=== PATIENT | male | born 1960 | race Caucasian/White ===

== ENCOUNTER 2025-02-26 10:54 | Day surgery (SDC) | payer MEDICARE, BC, SELFPAY ==
[2025-02-23 11:00] VITALS: BMI 31.4
[2025-02-26] MEDS: LACTATED RINGERS 1000ML 1,000 ML 50 ML IV (11:09)
[2025-02-26 11:13] VITALS: BP 122/84; PULSE 84; RESP 17; TEMP 36.3; O2SAT 99
--- NOTE | 2025-02-26 11:51 | EXP.HP ---
History of Present Illness *Admission Date: 02/26/25 *History of present illness: Mr. Clifford is a 65-year-old gentleman who is here for diagnostic panendoscopy. The patient does have a history of duodenal ulcers and had an EGD with id and April 2015 and again in July 2017. His endoscopy in 2017 did show eosinophilic esophagitis. His last colonoscopy was in October 2014 and he had left-sided diverticulosis but no polyps. The patient is doing very well and reports regular bowel function and does take psyllium fiber. He also has remained on the buspirone and misoprostol which he states has helped him maintain better digestive function. He reports no rectal bleeding, abdominal pain, weight loss or change in bowel habits. He reports no family history of colon cancer. He is due for repeat surveillance colonoscopy. He is not on any maintenance of therapy for his eosinophilic esophagitis. He will have some occasional dysphagia to vitamins or large tablets and did have a meat impaction about a year ago. He has not had an EGD since his last in 2016. [facility] Disclaimer: The information contained in this section may have been updated after the patient was seen, as this information can be updated by other users. Medical History Hiatal hernia GERD (gastroesophageal reflux disease) Eosinophilic esophagitis Diverticulosis Surgical History History of shoulder surgery History of repair of ACL H/O hand surgery Family History Father Prostate cancer Brother Cirrhosis Social History Smoking Status: Never smoker alcohol intake: current alcohol intake frequency: holidays/special occasions only substance use type: denies use current occupational status: employed Travel in the last 8 weeks?: None Have you lived/traveled outside [place] in past 30 days?: No Contact w/someone who lives/traveled outside US past 30 days?: No Exposure to someone with infectious disease in past 14 days?: No Do you have a fever (greater than 100.4 F or 38 C)?: No Have you tested positive for COVID-19?: No Exposed to someone with COVID-19 in past 14 days?: No Do you have a sore throat?: No Do you have a cough?: No Do you have any weakness?: No Do you have any diarrhea?: No Are you experiencing any unusual bleeding?: No Do you have any muscle aches/pain?: No Do you have any abdominal pain?: No Are you experiencing loss of taste or smell?: No Other Medical History Have you received the Pneumonia Vaccine: No Review of Systems Review of Systems Review of systems (narrative): Negative *Cardiovascular Comments: Negative *Gastrointestinal Comments: Negative *Genitourinary Comments: Negative *Musculoskeletal Comments: Negative *Neurologic Comments: Negative Meds Home Medications and Allergies Home Medications ?Medication ?Instructions ?Recorded ?Confirmed ?Type buspirone 10 mg tablet 10 mg PO BID #60 tabs 12/20/24 02/26/25 Rx methylphenidate HCl 10 mg tablet 10 mg PO QID 12/20/24 02/26/25 History (Ritalin) misoprostol 200 mcg tablet 200 mcg PO BID #60 tabs 12/20/24 02/26/25 Rx quetiapine 150 mg tablet 150 mg PO DAILY 12/20/24 02/26/25 History quetiapine 300 mg tablet 300 mg PO DAILY 12/20/24 02/26/25 History New Prescriptions to Start Prescriptions: Allergies Allergy/AdvReac Type Severity Reaction Status Date / Time No Known Allergies Allergy Verified 02/26/25 11:11 Exam Data for Last 24 hours Vital signs and Labs for Last 24 Hours: Temp Pulse Resp BP Pulse Ox O2 Del Method 97.3 F L 84 17 122/84 99 Room Air 02/26/25 11:13 02/26/25 11:13 02/26/25 11:13 02/26/25 11:13 02/26/25 11:13 02/26/25 11:13 I & O for Last 24 hours: Intake & Output 02/23/25 02/24/25 02/25/25 02/26/25 23:59 23:59 23:59 23:59 Weight 245 lb *Routine HEENT Exam Head: Present normocephalic Eye: Present EOMI and PERRL ENT: Present mucous membranes moist *Routine Neck Exam Neck: Present supple *Routine Respiratory Exam Respiratory: Present CTA bilaterally *Routine Cardiovascular Exam Cardiovascular: Present RRR *Routine Abdominal Exam Abdominal: Present soft and normoactive bowel sounds; Absent tenderness *Routine Rectal Exam Rectal:: deferred *Routine Genitalia Exam Genitalia:: deferred *Routine Extremities Exam Extremities: Absent cyanosis, clubbing or edema *Routine Skin Exam Skin: Present warm; Absent rash *Routine Neurological Exam Neurological: Present alert and oriented X3 Assessment and Plan *Assessment and plan (1) Screening for colon cancer: Status: Acute Category: Medical Code(s): Z12.11 - Encounter for screening for malignant neoplasm of colon (2) Eosinophilic esophagitis: Status: Acute Category: Medical Code(s): K20.0 - Eosinophilic esophagitis (3) Intermittent dysphagia: Status: Acute Category: Medical Code(s): R13.19 - Other dysphagia (4) History of duodenal ulcer: Status: Acute Category: Medical Code(s): Z87.19 - Personal history of other diseases of the digestive system Plan A/P: 1. Intermittent dysphagia with history of eosinophilic esophagitis for upper endoscopy and screening for colonoscopy is the preprocedural diagnosis. The patient will be anesthetized/sedated using MAC sedation. The patient has been seen and examined. Cardiac and lung assessment prior to the examination is stable. Proceed with planned EGD and screening colonoscopy.
--- NOTE | 2025-02-26 12:33 | EXP.ANES.CKL ---
[facility] Disclaimer: The information contained in this section may have been updated after the patient was seen, as this information can be updated by other users. Medical History Hiatal hernia GERD (gastroesophageal reflux disease) Eosinophilic esophagitis Diverticulosis Surgical History History of shoulder surgery History of repair of ACL H/O hand surgery Family History Father Prostate cancer Brother Cirrhosis Social History Smoking Status: Never smoker alcohol intake: current alcohol intake frequency: holidays/special occasions only substance use type: denies use current occupational status: employed Travel in the last 8 weeks?: None Have you lived/traveled outside US in past 30 days?: No Contact w/someone who lives/traveled outside [place] past 30 days?: No Exposure to someone with infectious disease in past 14 days?: No Do you have a fever (greater than 100.4 F or 38 C)?: No Have you tested positive for COVID-19?: No Exposed to someone with COVID-19 in past 14 days?: No Do you have a sore throat?: No Do you have a cough?: No Do you have any weakness?: No Do you have any diarrhea?: No Are you experiencing any unusual bleeding?: No Do you have any muscle aches/pain?: No Do you have any abdominal pain?: No Are you experiencing loss of taste or smell?: No [facility] Anesthesia Checklist Patient Identification Patient Identification: Arm Band and Verbal (Name & ) Structural Data Admitted From: Home Planned Operative Procedure/s: EGD/Colonoscopy Verified Documents: Surgical Consent NPO Status Verified Time NPO: 00:00 Additional verifications Anesthesia Reactions: No Airway Assessment Mallampati Score:: Class II C-Spine Mobility Assessed: Yes TMJ Mobility Assessed: Yes Dentition: Good Dentition Neurological Assessment Level of Consciousness: Awake, Alert and Appropriate Hx Seizures: No Numbness or tingling in extremities: No Anesthesia Plan Anesthesia Risk discussed: Yes Anesthesia Plan: Verified ASA Class: II Anesthesia Type: MAC
--- NOTE | 2025-02-26 12:36 | HMH.PROCNOTE ---
[facility] [place] Procedure Note Date: 02/26/25 Time: 12:54 Procedure Note:: Upper Endoscopy Procedure Report: Esophagogastroduodenoscopy with cold biopsies and TTS balloon dilation Endoscopost: Cale Jha II, MD Referring Physician: Azeb Zimmerman MD Date of Procedure: February 26, 2025 Equipment: Olympus [id number]-1100 standard upper endoscope Sedation: MAC sedation Indications: Mr. Clifford is a 65-year-old gentleman who is here for diagnostic panendoscopy. The patient does have a history of duodenal ulcers and had an EGD with pa and April 2015 and again in July 2017. His endoscopy in 2017 did show eosinophilic esophagitis. His last colonoscopy was in October 2014 and he had left-sided diverticulosis but no polyps. The patient is doing very well and reports regular bowel function and does take psyllium fiber. He also has remained on the buspirone and misoprostol which he states has helped him maintain better digestive function. He reports no rectal bleeding, abdominal pain, weight loss or change in bowel habits. He reports no family history of colon cancer. He is due for repeat surveillance colonoscopy. He is not on any maintenance of therapy for his eosinophilic esophagitis. He will have some occasional dysphagia to vitamins or large tablets and did have a meat impaction about a year ago. He has not had an EGD since his last in 2016. Procedure: Prior to the procedure, a history and physical exam was performed, and patient's medications and allergies were reviewed. The risks, benefits and alternatives of the sedation and procedure were discussed with the patient. All questions were answered and informed consent was obtained. The patient was brought to the procedure room. Patient identification and proposed procedure were verified by the physician and the nurse. The patient was placed in a left lateral decubitus position and the scope was passed under direct vision. Throughout the procedure, the patient's blood pressure, pulse, and oxygen saturations were monitored continuously. The upper GI endoscopy was accomplished without difficulty. The patient tolerated the procedure well. Findings: The scope was passed directly into the upper esophagus and advanced to the 3rd and 4th portion of the duodenum. A cold biopsy was taken from the second portion of duodenum for the disaccharidase assay. The post bulbar duodenum, ampulla and duodenal bulb were normal with normal mucosa and conniventes. The scope was withdrawn through a normal duodenal bulb and pylorus into the stomach. There was some mild linear antral gastropathy and mild chronic gastritis. Cold biopsies were taken from the antrum and lesser curvature to rule out H. pylori. Upon retroflexion there was no hiatal hernia. The scope was then withdrawn into the esophagus. There was no evidence of reflux esophagitis or Mejia's. There was some corrugation and furrowing in the distal, mid and proximal esophagus consistent with chronic eosinophilic esophagitis. Cold biopsies were taken from the distal and proximal esophagus. The esophagus was then dilated from 18 to 20 mm with a TTS hydrostatic balloon. The remainder of the esophageal mucosa was normal. Impression: 1. Corrugation/furrowing of esophagus suggestive of chronic eosinophilic esophagitis 2. Mild antral gastropathy and mild chronic gastritis Plan: I will follow-up the biopsies and send RAST food allergy testing. I would also recommend that he begin omeprazole/PPI therapy because of the findings of EOE. I will proceed with screening colonoscopy.
--- NOTE | 2025-02-26 12:54 | P.PCN_ITS ---
[facility] Procedure Note Date: 02/26/25 Time: 13:08 Procedure Note:: Colonoscopy Procedure Report: Colonoscopy Endoscopist: Cale Jha II, MD Referring physician: Azeb Zimmerman MD Date of Procedure: February 26, 2025 Equipment: Olympus [id number] adult colonoscope Sedation: MAC sedation Indication: Mr. Clifford is a 65-year-old gentleman who is here for screening colonoscopy. His last colonoscopy was in October 2014 and he had left-sided diverticulosis but no polyps. He reports no rectal bleeding, abdominal pain, weight loss or change in bowel habits. He reports no family history of colon cancer. He is due for repeat screening/surveillance colonoscopy. Procedure: Prior to the procedure, a history and physical exam was performed, and patient's medications and allergies were reviewed. The risks, benefits and alternatives of the sedation and procedure were discussed with the patient. All questions were answered and informed consent was obtained. The patient was brought to the procedure room. Patient identification and proposed procedure were verified by the physician and the nurse. The patient was placed in a left lateral decubitus position and the scope was passed under direct vision. Throughout the procedure, the patient's blood pressure, pulse, and oxygen saturations were monitored continuously. The colonoscopy was accomplished without difficulty. The patient tolerated the procedure well. Findings: On digital rectal examination there was normal rectal tone. There were no external hemorrhoids. The prostate was 2+, mildly firm but symmetric without nodules. The colonoscope was introduced through the anal canal to the rectum and advanced to the cecum. The ileocecal valve and appendiceal orifice were identified. The scope was advanced a short distance into the ileum which appeared grossly normal. The scope was then withdrawn into the colon. The cecum, ascending and transverse colon and mucosa were grossly normal. There were scattered diverticuli throughout the descending and sigmoid colon (LEFT colon). The rectum itself was normal. Upon retroflexion within the rectum there were grade 1-2 internal hemorrhoids. The preparation was excellent throughout with [place] Preparation Score of 9. The cecal time was 12 minutes. Impression: 1. Left-sided diverticulosis 2. Grade 1-2 internal hemorrhoids Plan: The patient will not require surveillance colonoscopy again for 10 years by ACS guidelines. I would encourage continued psyllium fiber supplementation on a long-term daily maintenance basis.
[2025-02-26 13:09] VITALS: BP 125/69; PULSE 80; RESP 16; TEMP 36.3; O2SAT 95
[2025-02-26 13:19] VITALS: BP 120/79; PULSE 86; RESP 18; TEMP 36.3; O2SAT 96
[2025-02-26 13:29] VITALS: BP 130/82; PULSE 84; RESP 18; TEMP 36.3; O2SAT 97
[2025-02-26 13:39] VITALS: BP 129/88; PULSE 61; RESP 18; TEMP 36.3; O2SAT 97
[2025-03-01 14:12] LABS: Interpretation Notes (.); Lactase 0.26 (>/= 14.0); Maltase 21.97 (>/= 110.0); Palatinase 1.05 (>/= 8.5); Reference Notes (.); Sucrase 0 (>/= 25.0)
== END 2025-02-26 13:50 | disposition home or self-care (01) ==
PROVIDERS: PCP Internal Medicine; Visit Provider Internal Medicine Gastroenterology
PROC: 0DJ08ZZ Inspection of Upper Intestinal Tract, Via Natural or Artificial Opening Endoscopic (ICD-10-PCS; CPT 45378; principal; 2025-02-26 12:00)
DX: Z12.11 Encounter for screening for malignant neoplasm of colon (principal); Z87.19 Personal history of other diseases of the digestive system; K57.30 Diverticulosis of large intestine without perforation or abscess without bleeding; K64.0 First degree hemorrhoids; K64.1 Second degree hemorrhoids; K29.50 Unspecified chronic gastritis without bleeding; K21.9 Gastro-esophageal reflux disease without esophagitis; Z79.899 Other long term (current) drug therapy
CPT/HCPCS: 43239; 43249; 45378; 36415; 82657; 86003; C1726; J2003; J2704; J7120